=== PATIENT | male | born 1990 | race Caucasian/White ===

== ENCOUNTER 2018-02-22 16:06 | Inpatient (IN) | payer MEDICARE, MEDICAID ==
[~2018-02-22] VITALS: Ht 170.2 cm; Wt 72.7 kg
[~2018-02-22 16:06] MED LIST: BAC15O TP; CEPH-357 PO; DOXY100C43 PO; NO HOME MEDS; PRED20TA PO
[2018-02-22] MEDS ORDERED: normal saline 1000ML IV soln IVB ONE (16:25)
[2018-02-22] MEDS ORDERED: ondansetron/PF 4mg/2ml inj IV ONE (16:25)
[2018-02-22 16:52] LABS: CLARITY,URINE SLIGHTLY CLOUDY (Clear); GLUCOSE, URINE NEGATIVE (Neg); KETONES,URINE TRACE mg/dl (Neg); LEUKOCYTE ESTERASE ,URINE NEGATIVE (Neg); NITRITES, URINE NEGATIVE (Neg); OCCULT BLOOD,URINE NEGATIVE (Neg); PROTEIN,URINE TRACE mg/dl (Neg)
[2018-02-22 16:53] LABS: UA COLLECTION TYPE VOIDED
[2018-02-22 16:54] LABS: COLOR,URINE DARK YELLOW (Yellow)
[2018-02-22 16:56] LABS: AMORPHOUS URATES 2+; BACTERIA,URINE FEW /HPF (Neg); CAL OXALATE CRYSTALS 2+ /HPF (NEGATIVE); MUCUS STRANDS FEW /LPF (Neg); RBC,URINE NONE SEEN /HPF (0-2); SQUAMOUS EPITHELIAL CELL,UR FEW /LPF (FEW)
[2018-02-22] MEDS ORDERED: morphine 4 MG/ML inj SYRINge IV ONE ×2 (17:05→18:25)
[2018-02-22] MEDS ORDERED: normal saline 1000ML IV soln IV ONE (17:05)
[2018-02-22 17:11] LABS: BASOPHILS % (AUTO) 0.2 % (0-1); EOSINOPHILS # (AUTO) 0.1 X10'3 (0-0.9); HEMATOCRIT 41.2 % (42.0-52.0); HEMOGLOBIN 13.8 g/dl (14.0-17.9); LYMPHOCYTES # (AUTO) 1.5 X10'3 (1.1-4.8); LYMPHOCYTES % (AUTO) 10.6 % (21-51); MEAN CORPUSCULAR HEMOGLOBIN 29.7 PG (27.0-31.0); MEAN CORPUSCULAR HGB CONC 33.6 % (33.0-36.5); MEAN CORPUSCULAR VOLUME 88.5 FL (78-98); MEAN PLATELET VOLUME 7.9 FL (7.4-10.4); MONOCYTES # (AUTO) 0.8 X10'3 (0-0.9); MONOCYTES % (AUTO) 5.2 % (2-12); NEUTROPHILS # (AUTO) 12.2 X10'3 (1.8-7.7); PLATELET COUNT 276 X10'3 (140-440); RED BLOOD COUNT 4.66 X10'6 (4.70-6.10); RED CELL DISTRIBUTION WIDTH 12.8 % (11.5-14.5); WHITE BLOOD COUNT 14.6 X10'3 (4.5-11.0)
[2018-02-22 17:17] LABS: ALANINE AMINOTRANSFERASE 27 U/L (12-78); ALBUMIN 2.8 G/DL (3.4-5.0); ALBUMIN/GLOBULIN RATIO 0.7 (1.1-1.5); ALKALINE PHOSPHATASE 85 IU/L (46-116); ANION GAP 9 (8-16); ASPARTATE AMINO TRANSFERASE 9 U/L (10-37); BILIRUBIN,TOTAL 0.5 MG/DL (0.1-1.0); BLOOD UREA NITROGEN 13 MG/DL (7-18); BUN/CREATININE RATIO 12.5 (5.4-32.0); CALCIUM 8.6 MG/DL (8.5-10.1); CHLORIDE 101 MMOL/L (99-107); CREATININE 1.04 MG/DL (0.60-1.10); GLUCOSE 126 MG/DL (70-104); LIPASE 68 U/L (73-393); POTASSIUM 3.2 MMOL/L (3.5-5.1); SODIUM 139 MMOL/L (135-145); TOTAL CARBON DIOXIDE 28.8 MMOL/L (24-32); TOTAL PROTEIN 6.8 G/DL (6.4-8.2); eGFR 84 ML/MIN
[2018-02-22] MEDS ORDERED: azithromycin/NS 500mg/250ml 250 ML IV ONE (17:20)
[2018-02-22] MEDS ORDERED: CefTRIAXone 2gm/D5W 50ml 50 ML IV ONE (17:20)
[2018-02-22 18:09] LABS: LACTIC SEPSIS 1.9 MMOL/L (0.4-2.0)
[2018-02-22] MEDS ORDERED: vancomycin inj 1,000 MG in normal saline 250ml IV soln 250 ML IV STA (18:23)
[2018-02-22] MEDS ORDERED: vancomycin/NS 1 GM ADD-VANTAGE 250 ML IV ONE (18:30)
[2018-02-22] MEDS ORDERED: iohexol 300mg/ml 100ml inj. ONE (18:36)
[2018-02-22] MEDS ORDERED: LORazepam 2 mg/ml vial IV ONE (20:25)
[2018-02-22] MEDS ORDERED: ketorolac trometh. 30mg/ml inj. IV ONE (20:25)
[2018-02-22] MEDS ORDERED: fentaNYL/PF 50MCG/1 ML 2ML syringe IV ONE (20:25)
[2018-02-22] MEDS ORDERED: potassium Cl 20 mEq SR tablet PO PRN (21:10)
[2018-02-22] MEDS ORDERED: magnesium 4gm in 100ml NS 100 ML IV PRN (21:10)
[2018-02-22] MEDS ORDERED: ondansetron/PF 4mg/2ml inj IV PRN (21:10)
[2018-02-22] MEDS ORDERED: potassium Cl 40MEQ/NS 500ml 500 ML IV PRN ×2 (21:10)
[2018-02-22] MEDS ORDERED: magnesium Cl slow-release 64mg tablet PO PRN (21:10)
[2018-02-22] MEDS ORDERED: magnesium 1gm/100ml D5W IVPB 100 ML IV PRN (21:10)
[2018-02-22 21:13] LABS: URINE AMPHETAMINE SCREEN POSITIVE (Neg); URINE BARBITUATE SCREEN NEGATIVE (Neg); URINE BENZODIAZEPINES SCREEN NEGATIVE (Neg); URINE CANNABINOID SCREEN NEGATIVE (Neg); URINE COCAINE SCREEN NEGATIVE (Neg); URINE METHADONE SCREEN NEGATIVE (Neg); URINE OPIATE SCREEN POSITIVE (Neg); URINE PHENCYCLIDINE SCREEN NEGATIVE (Neg)
[2018-02-22] MEDS: normal saline 1000ml 1,000 ML IV SCH (21:31)
[2018-02-22 22:30] VITALS: BP 131/65
[2018-02-22] MEDS: potassium Cl 20 mEq SR tablet PO PRN (22:35)
[2018-02-23] MEDS: potassium Cl 20 mEq SR tablet PO PRN ×3 (02:41→22:09)
[2018-02-23] MEDS: morphine 2 MG/ML inj. syringe IV PRN ×6 (02:50→20:34)
[2018-02-23 07:03] VITALS: BP 134/76
[2018-02-23] MEDS: normal saline 1000ml 1,000 ML IV SCH ×2 (07:33→17:42)
[2018-02-23] MEDS: K and/or MAG REPLACEMENT MC SCH (08:00)
[2018-02-23] MEDS: heparin, porcine 5000 units/ml vial SQ SCH ×2 (08:00→20:00)
[2018-02-23] MEDS: LORazepam 2 mg/ml vial IV PRN ×4 (10:31→23:14)
[2018-02-23 11:43] VITALS: BP 139/73
[2018-02-23 14:57] LABS: ALANINE AMINOTRANSFERASE 19 U/L (12-78); ALBUMIN 2.1 G/DL (3.4-5.0); ALBUMIN/GLOBULIN RATIO 0.6 (1.1-1.5); ALKALINE PHOSPHATASE 83 IU/L (46-116); ANION GAP 7 (8-16); ASPARTATE AMINO TRANSFERASE 13 U/L (10-37); BILIRUBIN,TOTAL 0.4 MG/DL (0.1-1.0); BLOOD UREA NITROGEN 9 MG/DL (7-18); BUN/CREATININE RATIO 13.4 (5.4-32.0); CALCIUM 7.7 MG/DL (8.5-10.1); CHLORIDE 103 MMOL/L (99-107); CREATININE 0.67 MG/DL (0.60-1.10); GLUCOSE 102 MG/DL (70-104); POTASSIUM 3.4 MMOL/L (3.5-5.1); SODIUM 137 MMOL/L (135-145); TOTAL CARBON DIOXIDE 26.9 MMOL/L (24-32); TOTAL PROTEIN 5.7 G/DL (6.4-8.2); eGFR > 90 ML/MIN
[2018-02-23 15:44] LABS: BASOPHILS % (AUTO) 0.1 % (0-1); EOSINOPHILS % (AUTO) 0.4 % (0-6); HEMATOCRIT 38.3 % (42.0-52.0); HEMOGLOBIN 12.9 g/dl (14.0-17.9); LYMPHOCYTES # (AUTO) 1.2 X10'3 (1.1-4.8); LYMPHOCYTES % (AUTO) 11.5 % (21-51); MEAN CORPUSCULAR HEMOGLOBIN 29.5 PG (27.0-31.0); MEAN CORPUSCULAR HGB CONC 33.8 % (33.0-36.5); MEAN CORPUSCULAR VOLUME 87.2 FL (78-98); MEAN PLATELET VOLUME 8.4 FL (7.4-10.4); MONOCYTES # (AUTO) 0.9 X10'3 (0-0.9); MONOCYTES % (AUTO) 8.2 % (2-12); NEUTROPHILS # (AUTO) 8.6 X10'3 (1.8-7.7); NEUTROPHILS % (AUTO) 79.8 % (42-75); PLATELET COUNT 288 X10'3 (140-440); RED CELL DISTRIBUTION WIDTH 12.7 % (11.5-14.5); WHITE BLOOD COUNT 10.7 X10'3 (4.5-11.0)
[2018-02-23] MEDS: azithromycin 250mg tablet PO SCH (17:41)
[2018-02-23] MEDS: cefTRIAXone 1g/NS 100ml IVPB 100 ML IV SCH (17:48)
[2018-02-23] MEDS: acetaminophen 325mg tablet PO PRN (18:59)
[2018-02-23 20:00] VITALS: BP 123/70
[2018-02-23] MEDS: famotidine 20mg tablet PO SCH (20:06)
[2018-02-23] MEDS: lactobacillus rhamnosus 10,000 MMU CELLS/CAPSULE PO SCH (20:06)
[2018-02-24] MEDS: morphine 2 MG/ML inj. syringe IV PRN ×5 (01:31→21:36)
[2018-02-24] MEDS: potassium Cl 20 mEq SR tablet PO PRN (03:36)
[2018-02-24] MEDS: normal saline 1000ml 1,000 ML IV SCH ×3 (03:36→23:14)
[2018-02-24] MEDS: heparin, porcine 5000 units/ml vial SQ SCH ×2 (08:00→19:46)
[2018-02-24] MEDS: K and/or MAG REPLACEMENT MC SCH (08:00)
[2018-02-24] MEDS: lactobacillus rhamnosus 10,000 MMU CELLS/CAPSULE PO SCH ×2 (08:34→19:59)
[2018-02-24] MEDS: LORazepam 2 mg/ml vial IV PRN ×2 (08:34→16:03)
[2018-02-24] MEDS ORDERED: MORPHINE 2MG in 2ml NS syringe IV PRN (16:20)
[2018-02-24] MEDS: azithromycin 250mg tablet PO SCH (17:10)
[2018-02-24] MEDS: cefTRIAXone 1g/NS 100ml IVPB 100 ML IV SCH (17:11)
[2018-02-24 19:30] VITALS: BP 134/68
[2018-02-24] MEDS: famotidine 20mg tablet PO SCH (19:59)
[2018-02-24] MEDS: acetaminophen 325mg tablet PO PRN (20:00)
[2018-02-25] VITALS: BP 150/66
[2018-02-25] MEDS: LORazepam 2 mg/ml vial IV PRN ×2 (00:55→07:51)
[2018-02-25] MEDS: morphine 2 MG/ML inj. syringe IV PRN ×4 (03:49→19:50)
[2018-02-25 05:12] LABS: BASOPHILS % (AUTO) 0.3 % (0-1); EOSINOPHILS # (AUTO) 0.2 X10'3 (0-0.9); HEMATOCRIT 40.4 % (42.0-52.0); HEMOGLOBIN 13.3 g/dl (14.0-17.9); LYMPHOCYTES # (AUTO) 1.5 X10'3 (1.1-4.8); LYMPHOCYTES % (AUTO) 12.8 % (21-51); MEAN CORPUSCULAR HEMOGLOBIN 29.1 PG (27.0-31.0); MEAN CORPUSCULAR VOLUME 88.2 FL (78-98); MONOCYTES # (AUTO) 0.7 X10'3 (0-0.9); MONOCYTES % (AUTO) 6.2 % (2-12); NEUTROPHILS # (AUTO) 9.3 X10'3 (1.8-7.7); NEUTROPHILS % (AUTO) 78.7 % (42-75); PLATELET COUNT 312 X10'3 (140-440); RED BLOOD COUNT 4.58 X10'6 (4.70-6.10); RED CELL DISTRIBUTION WIDTH 13.5 % (11.5-14.5); WHITE BLOOD COUNT 11.8 X10'3 (4.5-11.0)
[2018-02-25 05:26] LABS: ALBUMIN 2.2 G/DL (3.4-5.0); ANION GAP 10 (8-16); BLOOD UREA NITROGEN 7 MG/DL (7-18); CALCIUM 8.3 MG/DL (8.5-10.1); CHLORIDE 104 MMOL/L (99-107); GLUCOSE 101 MG/DL (70-104); MAGNESIUM 1.7 MG/DL (1.5-2.4); POTASSIUM 3.6 MMOL/L (3.5-5.1); SODIUM 139 MMOL/L (135-145); TOTAL CARBON DIOXIDE 25.1 MMOL/L (24-32); eGFR > 90 ML/MIN
[2018-02-25] MEDS: heparin, porcine 5000 units/ml vial SQ SCH ×2 (07:51→19:49)
[2018-02-25] MEDS: lactobacillus rhamnosus 10,000 MMU CELLS/CAPSULE PO SCH ×2 (07:51→19:49)
[2018-02-25 08:00] VITALS: BP 135/76
[2018-02-25] MEDS: K and/or MAG REPLACEMENT MC SCH (08:00)
[2018-02-25] MEDS: normal saline 1000ml 1,000 ML IV SCH ×3 (09:06→22:29)
[2018-02-25 12:00] VITALS: BP 139/81
[2018-02-25] MEDS: nicotine 21mg patch - 24 hr TD SCH (12:03)
[2018-02-25] MEDS: cefTRIAXone 1g/NS 100ml IVPB 100 ML IV SCH (17:45)
[2018-02-25] MEDS: azithromycin 250mg tablet PO SCH (17:45)
[2018-02-25 20:00] VITALS: BP 136/85
[2018-02-25] MEDS: famotidine 20mg tablet PO SCH (20:16)
[2018-02-26] VITALS: BP 110/65
[2018-02-26] MEDS: morphine 2 MG/ML inj. syringe IV PRN ×3 (00:24→12:19)
[2018-02-26 05:14] LABS: BASOPHILS % (AUTO) 0.4 % (0-1); EOSINOPHILS # (AUTO) 0.3 X10'3 (0-0.9); EOSINOPHILS % (AUTO) 3.2 % (0-6); HEMATOCRIT 37.9 % (42.0-52.0); HEMOGLOBIN 12.7 g/dl (14.0-17.9); LYMPHOCYTES # (AUTO) 2.2 X10'3 (1.1-4.8); LYMPHOCYTES % (AUTO) 20.9 % (21-51); MEAN CORPUSCULAR HEMOGLOBIN 29.3 PG (27.0-31.0); MEAN CORPUSCULAR HGB CONC 33.5 % (33.0-36.5); MEAN CORPUSCULAR VOLUME 87.5 FL (78-98); MEAN PLATELET VOLUME 7.7 FL (7.4-10.4); MONOCYTES # (AUTO) 0.9 X10'3 (0-0.9); MONOCYTES % (AUTO) 8.2 % (2-12); NEUTROPHILS # (AUTO) 7.2 X10'3 (1.8-7.7); NEUTROPHILS % (AUTO) 67.3 % (42-75); PLATELET COUNT 319 X10'3 (140-440); RED BLOOD COUNT 4.33 X10'6 (4.70-6.10); RED CELL DISTRIBUTION WIDTH 13.4 % (11.5-14.5); WHITE BLOOD COUNT 10.7 X10'3 (4.5-11.0)
[2018-02-26 05:22] LABS: ALBUMIN 2.1 G/DL (3.4-5.0); ANION GAP 7 (8-16); BLOOD UREA NITROGEN 8 MG/DL (7-18); BUN/CREATININE RATIO 11.6 (5.4-32.0); CALCIUM 7.9 MG/DL (8.5-10.1); CHLORIDE 101 MMOL/L (99-107); CREATININE 0.69 MG/DL (0.60-1.10); GLUCOSE 97 MG/DL (70-104); MAGNESIUM 1.4 MG/DL (1.5-2.4); POTASSIUM 3.6 MMOL/L (3.5-5.1); SODIUM 135 MMOL/L (135-145); TOTAL CARBON DIOXIDE 27.5 MMOL/L (24-32); eGFR > 90 ML/MIN
[2018-02-26 07:00] VITALS: BP 139/78
[2018-02-26] MEDS ORDERED: magnesium Cl slow-release 64mg tablet PO PRN (07:20)
[2018-02-26] MEDS: K and/or MAG REPLACEMENT MC SCH (07:25)
[2018-02-26] MEDS: nicotine 21mg patch - 24 hr TD SCH (08:17)
[2018-02-26] MEDS: heparin, porcine 5000 units/ml vial SQ SCH (08:18)
[2018-02-26] MEDS: normal saline 1000ml 1,000 ML IV SCH (08:18)
[2018-02-26] MEDS: lactobacillus rhamnosus 10,000 MMU CELLS/CAPSULE PO SCH (08:18)
[2018-02-26] MEDS ORDERED: HYDR-569 PO (10:12)
[2018-02-26] MEDS ORDERED: IBUP-1986 PO (10:12)
[2018-02-26] MEDS ORDERED: LEVO750T21 PO (10:12)
== END 2018-02-26 14:08 | disposition home or self-care (01) | DRG 689 ==
LOC: ER 16:06 → ED HOLD 21:06 → SUR 3N 22:29
PROVIDERS: ADMIT Internal Medicine; ATTEND Family Medicine
PROC: B32T1ZZ Computerized Tomography (CT Scan) of Left Pulmonary Artery using Low Osmolar Contrast (ICD-10-PCS; principal; 2018-02-22)
PROC: B3201ZZ Computerized Tomography (CT Scan) of Thoracic Aorta using Low Osmolar Contrast (ICD-10-PCS; 2018-02-22)
PROC: B32S1ZZ Computerized Tomography (CT Scan) of Right Pulmonary Artery using Low Osmolar Contrast (ICD-10-PCS; 2018-02-22)
DX: N39.0 Urinary tract infection, site not specified (principal); J15.9 Unspecified bacterial pneumonia; J90 Pleural effusion, not elsewhere classified; F11.23 Opioid dependence with withdrawal; F20.9 Schizophrenia, unspecified; F15.10 Other stimulant abuse, uncomplicated; E87.6 Hypokalemia; J45.909 Unspecified asthma, uncomplicated; B19.20 Unspecified viral hepatitis C without hepatic coma; F17.210 Nicotine dependence, cigarettes, uncomplicated; Z71.51 Drug abuse counseling and surveillance of drug abuser
CPT/HCPCS: 36415; 71045; 71275; 76700; 80048; 80053; 80305; 81001; 82140; 83605; 83690; 83735; 83880; 84484; 85025; 87040; 87070; 87088; 93005; 93306; 96361; 96374; 96375; 96376; 99285; A6258; J0456; J0696; J1644; J1885; J2060; J2270; J2274; J2405; J3010; J3370; J7030; Q9967

== ENCOUNTER 2019-05-24 23:10 | Emergency (ER) | payer MEDICARE ==
[~2019-05-24] VITALS: Ht 167.6 cm; Wt 63.6 kg
[~2019-05-24 23:10] MED LIST changes: -BAC15O TP; -CEPH-357 PO; -DOXY100C43 PO; +HYDR-4383 PO; +IBUP-1986 PO; -NO HOME MEDS; -PRED20TA PO
[2019-05-24 23:28] VITALS: BP 135/81
[2019-05-25] MEDS ORDERED: mupirocin 2% nasal ointment 1gm UD NS ONE (00:25)
[2019-05-25] MEDS ORDERED: mupirocin 2% ointment 22GM TP STA (00:43)
== END 2019-05-25 01:03 | disposition home or self-care (01) ==
LOC: ER 23:11
DX: J34.89 Other specified disorders of nose and nasal sinuses (principal); J45.909 Unspecified asthma, uncomplicated; F20.9 Schizophrenia, unspecified; F15.90 Other stimulant use, unspecified, uncomplicated; F11.90 Opioid use, unspecified, uncomplicated; F10.99 Alcohol use, unspecified with unspecified alcohol-induced disorder; Z86.14 Personal history of Methicillin resistant Staphylococcus aureus infection; Z86.19 Personal history of other infectious and parasitic diseases; Z98.890 Other specified postprocedural states; Z79.899 Other long term (current) drug therapy; Y90.9 Presence of alcohol in blood, level not specified
CPT/HCPCS: 99281

== ENCOUNTER 2019-06-14 08:25 | Emergency (ER) | payer OTHER | END 2019-06-14 10:44 | disposition left against medical advice (07) | LOC: ER 08:26 | DX: J34.89 Other specified disorders of nose and nasal sinuses (principal); Z53.21 Procedure and treatment not carried out due to patient leaving prior to being seen by health care provider ==

== ENCOUNTER 2019-10-26 13:50 | Emergency (ER) | payer MEDICARE, OTHER ==
[~2019-10-26] VITALS: Ht 170.2 cm; Wt 71.8 kg
[2019-10-26] MEDS ORDERED: normal saline 1000ML IV soln IVB ONE (14:00)
[2019-10-26] MEDS ORDERED: ondansetron/PF 4mg/2ml inj IV ONE (14:20)
[2019-10-26 14:28] LABS: BASOPHILS % (AUTO) 0.5 % (0-1); EOSINOPHILS # (AUTO) 0.1 X10'3 (0-0.9); EOSINOPHILS % (AUTO) 1.7 % (0-6); HEMATOCRIT 44.5 % (42.0-52.0); LYMPHOCYTES # (AUTO) 1.7 X10'3 (1.1-4.8); LYMPHOCYTES % (AUTO) 27.1 % (21-51); MEAN CORPUSCULAR HEMOGLOBIN 29.6 PG (27.0-31.0); MEAN CORPUSCULAR HGB CONC 33.7 g/dL (33.0-36.5); MEAN CORPUSCULAR VOLUME 87.9 FL (78-98); MONOCYTES # (AUTO) 0.5 X10'3 (0-0.9); MONOCYTES % (AUTO) 8.2 % (2-12); NEUTROPHILS % (AUTO) 62.5 % (42-75); PLATELET COUNT 182 X10'3 (140-440); RED BLOOD COUNT 5.07 X10'6 (4.70-6.10); RED CELL DISTRIBUTION WIDTH 14.7 % (11.5-14.5); WHITE BLOOD COUNT 6.4 X10'3 (4.5-11.0)
--- NOTE | 2019-10-26 14:36 | NUR ---
PERSON TO CONTACT FOR MANAGER FINANCIAL REPORTING-ARNOLD BALLESTEROS
[2019-10-26 14:44] LABS: ALANINE AMINOTRANSFERASE 25 U/L (12-78); ALBUMIN/GLOBULIN RATIO 1.3 (1.1-1.5); ALKALINE PHOSPHATASE 83 IU/L (46-116); ANION GAP 9 (8-16); ASPARTATE AMINO TRANSFERASE 30 U/L (10-37); BILIRUBIN,TOTAL 1.8 MG/DL (0.1-1.0); BLOOD UREA NITROGEN 9 MG/DL (7-18); CALCIUM 8.4 MG/DL (8.5-10.1); CHLORIDE 102 MMOL/L (99-107); ETHANOL < 0.010 GM/DL (0.0-0.010); GLUCOSE 179 MG/DL (70-104); POTASSIUM 3.7 MMOL/L (3.5-5.1); SODIUM 139 MMOL/L (135-145); TOTAL CARBON DIOXIDE 28.5 MMOL/L (24-32); TOTAL PROTEIN 7.2 G/DL (6.4-8.2); eGFR > 90 ML/MIN
--- NOTE | 2019-10-26 16:11 | NUR ---
Gave pt water which he tolerated well.
--- NOTE | 2019-10-26 17:21 | NUR ---
Syed Mosquera, friend, [phone], can give pt ride home when he is dc'd
[2019-10-26] MEDS ORDERED: IBUP-1986 PO (18:51)
[2019-10-26] MEDS ORDERED: HYDR-4383 PO (18:51)
[2019-10-26 18:56] LABS: URINE AMPHETAMINE SCREEN POSITIVE (Neg); URINE BARBITUATE SCREEN NEGATIVE (Neg); URINE BENZODIAZEPINES SCREEN NEGATIVE (Neg); URINE CANNABINOID SCREEN NEGATIVE (Neg); URINE COCAINE SCREEN NEGATIVE (Neg); URINE METHADONE SCREEN NEGATIVE (Neg); URINE OPIATE SCREEN POSITIVE (Neg); URINE PHENCYCLIDINE SCREEN NEGATIVE (Neg)
[2019-10-26 19:24] VITALS: BP 139/70
== END 2019-10-26 19:27 | disposition home or self-care (01) ==
LOC: ER 13:50
DX: T40.1X1A Poisoning by heroin, accidental (unintentional), initial encounter (principal); F19.10 Other psychoactive substance abuse, uncomplicated; J96.90 Respiratory failure, unspecified, unspecified whether with hypoxia or hypercapnia; J45.909 Unspecified asthma, uncomplicated; F20.9 Schizophrenia, unspecified; F15.90 Other stimulant use, unspecified, uncomplicated; F11.90 Opioid use, unspecified, uncomplicated; Z86.19 Personal history of other infectious and parasitic diseases; Z86.14 Personal history of Methicillin resistant Staphylococcus aureus infection; Z72.89 Other problems related to lifestyle; Z98.890 Other specified postprocedural states; Z79.899 Other long term (current) drug therapy; Y92.89 Other specified places as the place of occurrence of the external cause
CPT/HCPCS: 36415; 71045; 80053; 80305; 80320; 85025; 93005; 96374; 99285; J2405; J7030

== ENCOUNTER 2019-11-11 22:21 | Emergency (ER) | payer SELFPAY ==
[~2019-11-11] VITALS: Ht 170.2 cm; Wt 69.0 kg
[2019-11-11 22:42] VITALS: BP_SYST 142
[2019-11-11] MEDS ORDERED: AMOX-117 PO (22:52)
[2019-11-11] MEDS ORDERED: CEPH500C5 PO (23:11)
[2019-11-11] MEDS ORDERED: SULF1TAB49 PO (23:11)
== END 2019-11-11 23:32 | disposition home or self-care (01) ==
LOC: ER 22:21
DX: S30.811A Abrasion of abdominal wall, initial encounter (principal); L03.113 Cellulitis of right upper limb; H00.034 Abscess of left upper eyelid; J45.909 Unspecified asthma, uncomplicated; F20.9 Schizophrenia, unspecified; F15.90 Other stimulant use, unspecified, uncomplicated; F11.90 Opioid use, unspecified, uncomplicated; Z86.19 Personal history of other infectious and parasitic diseases; Z86.14 Personal history of Methicillin resistant Staphylococcus aureus infection; Z79.2 Long term (current) use of antibiotics; Z79.899 Other long term (current) drug therapy; X58.XXXA Exposure to other specified factors, initial encounter; Y93.89 Activity, other specified; Y92.89 Other specified places as the place of occurrence of the external cause; Y99.8 Other external cause status
CPT/HCPCS: 71101; 99283

== ENCOUNTER 2020-02-19 19:25 | Emergency (ER) | payer OTHER ==
[~2020-02-19] VITALS: Ht 170.2 cm; Wt 79.5 kg
[2020-02-19 21:14] VITALS: BP 144/89
[2020-02-19] MEDS ORDERED: CHLO118M PO (21:41)
[2020-02-19] MEDS ORDERED: ACET-2119 PO (21:41)
[2020-02-19] MEDS ORDERED: AMOX-422 PO (21:41)
== END 2020-02-19 21:52 | disposition home or self-care (01) ==
LOC: ER 19:26
DX: S02.609A Fracture of mandible, unspecified, initial encounter for closed fracture (principal); J45.909 Unspecified asthma, uncomplicated; F20.9 Schizophrenia, unspecified; F15.90 Other stimulant use, unspecified, uncomplicated; F11.90 Opioid use, unspecified, uncomplicated; Z86.14 Personal history of Methicillin resistant Staphylococcus aureus infection; Z86.19 Personal history of other infectious and parasitic diseases; Z72.89 Other problems related to lifestyle; Z98.890 Other specified postprocedural states; Z79.2 Long term (current) use of antibiotics; Z79.899 Other long term (current) drug therapy; W19.XXXA Unspecified fall, initial encounter; Y93.89 Activity, other specified; Y92.89 Other specified places as the place of occurrence of the external cause; Y99.8 Other external cause status
CPT/HCPCS: 70450; 70486; 72125; 99285

== ENCOUNTER 2023-12-02 22:14 | Emergency (ER) | payer MEDICARE, OTHER ==
[~2023-12-02] VITALS: Ht 165.1 cm; Wt 75.0 kg
[~2023-12-02 22:14] MED LIST changes: +CHLO118M PO
[2023-12-02 22:18] VITALS: BP 137/78; PULSE 97; RESP 16; TEMP 98.5; O2SAT 96
== END 2023-12-02 22:44 | disposition home or self-care (01) ==
LOC: ER 22:15
DX: M54.6 Pain in thoracic spine (principal); J45.909 Unspecified asthma, uncomplicated; F20.9 Schizophrenia, unspecified; F15.90 Other stimulant use, unspecified, uncomplicated; F11.90 Opioid use, unspecified, uncomplicated
CPT/HCPCS: 99282

== ENCOUNTER 2024-08-16 04:13 | Emergency (ER) | payer OTHER ==
[~2024-08-16] VITALS: Ht 167.6 cm; Wt 63.6 kg
[2024-08-16 04:19] VITALS: TEMP 97.8
[2024-08-16 05:30] VITALS: BP 121/78
[2024-08-16 05:35] VITALS: PULSE 101; RESP 15; O2SAT 94
== END 2024-08-16 06:00 | disposition home or self-care (01) ==
LOC: ER 04:13
DX: T40.411A Poisoning by fentanyl or fentanyl analogs, accidental (unintentional), initial encounter (principal); R11.0 Nausea; J45.909 Unspecified asthma, uncomplicated; F20.9 Schizophrenia, unspecified; F15.90 Other stimulant use, unspecified, uncomplicated; F11.90 Opioid use, unspecified, uncomplicated; Z72.89 Other problems related to lifestyle; Y92.89 Other specified places as the place of occurrence of the external cause
CPT/HCPCS: 99285